=== PATIENT | female | born 1955 | race Caucasian/White ===

== ENCOUNTER 2016-11-27 17:04 | Emergency (ER) | payer MEDICAID ==
[2016-11-27 17:11] VITALS: TEMP 97.9
--- NOTE | 2016-11-27 17:42 | CPEKG ---
Heart Rate: 82 RR Interval: 732 P-R Interval: 144 QRSD Interval: 104 QT Interval: 380 QTC Interval: 444 P [place]: 64 QRS [place]: 135 T Wave [place]: -57 EKG Severity - ABNORMAL ECG - EKG Impression: SINUS RHYTHM EKG Impression: BIATRIAL ABNORMALITIES EKG Impression: RVH WITH SECONDARY REPOLARIZATION ABNORMALITY EKG Impression: NONSPECIFIC T ABNORMALITIES, LATERAL LEADS Electronically Signed By: Hoang Garcia 27-Nov-2016 23:29:14
--- NOTE | 2016-11-27 17:52 | EDPHY ---
H & P Stated Complaint: sob/dyspnea/hx of chf Time Seen by Provider: 11/27/16 17:25 HPI/ROS: Chief Complaint: Shortness of breath HPI: 61-year-old female with a history of coronary artery disease, congestive heart failure and pulmonary hypertension has been having worsening shortness of breath and dyspnea on exertion for the last 3 weeks. She does feel like she is retaining more fluid than normal. She is under the care of , cardiology at [facility]. She has an appointment with pulmonary hypertension specialist on the of next month. Has had a mild nonproductive cough. No chest pain. No nausea or vomiting. No syncope or pain. No palpitations. ROS: 10 point Review of Systems is negative except as noted in the HPI. PMH: Coronary artery disease, congestive heart failure, pulmonary hypertension , ulcerative colitis Medications: Lasix, atorvastatin, carvedilol, spironolactone Allergies: Carisoprodol Social History: No smoking, no alcohol, no recreational drug use Family History: non-contributory Physical Exam: Gen: Awake, Alert, No Distress HEENT: Nose: no rhinorrhea Eyes: PERRLA, EOMI Mouth: Moist mucosa Neck: Supple, no JVD Chest: nontender, lungs clear to auscultation Heart: S1, S2 normal, no murmur Abd: Soft, non-tender, no guarding Back: no CVA tenderness, no midline tenderness Ext: no edema, non-tender Skin: no rash Neuro: CN II-XII intact, Sensation grossly intact, Strength 5/5 in bilateral upper and lower extremities - Personal History Current Tetanus/Diphtheria Vaccine: Yes - Medical/Surgical History Hx Asthma: No Hx Chronic Respiratory Disease: Yes Hx Diabetes: No Hx Cardiac Disease: Yes Hx Renal Disease: No Hx Cirrhosis: No Hx Alcoholism: No Hx HIV/AIDS: No Hx Splenectomy or Spleen Trauma: No Other PMH: pneumonia; nosocomial bacterial sepsis; ULCERATIVE COLITIS pulmonary hypertension and chf - Social History Smoking Status: Current some day smoker Constitutional: Initial Vital Signs Temperature (C) 36.6 C 11/27/16 17:08 Heart Rate 91 11/27/16 17:08 Respiratory Rate 20 11/27/16 17:08 Blood Pressure 115/77 11/27/16 17:08 O2 Sat (%) 97 11/27/16 17:08 O2 Delivery Mode Room Air Allergies/Adverse Reactions: carisoprodol [From Soma] Allergy (Severe, Verified 11/27/16 17:07) ITCH Home Medications: Medication Instructions Recorded Atorvastatin Calcium [Lipitor 80 80 mg PO DAILY #30 tablet 05/24/16 mg] Carvedilol [Coreg (*)] 3.125 mg PO BIDMEAL #60 tab 05/24/16 Furosemide [Lasix 40 MG (*)] 40 mg PO DAILY #30 tab 05/24/16 Nicotine [Nicoderm Cq 21 mg (*)] 21 mg TD DAILY #21 patch 05/24/16 Spironolactone [Aldactone] 50 mg PO DAILY #30 tab 05/24/16 Medical Decision Making - Diagnostics EKG Interpretation: ECG time 5:40 p.m., sinus rhythm with a rate of 82, he has T-wave inversions in the inferior leads and the [address] depression inferiorly and in precordium. These are unchanged compared to an ECG from the 20 May 2016. Imaging Results: Imaging Impressions Chest X-Ray 11/27/16 17:51 Impression: Mild cardiac enlargement, with prominence of the central pulmonary arteries. Lungs are clear.. ED Course/Re-evaluation: Case has been discussed with Dr. Nobles, cardiology at [facility]. I have reviewed the patient's ECG, blood work, an x-ray. He is not recommending any changes in her medical treatment at this time. He says that patient's best next step is to follow up with a pulmonary hypertension specialist as scheduled. He she can follow up with him in the office. Patient has an elevated BNP here but there is no clinical evidence of fluid overload at this time. She has good oxygen saturations. Her renal function is normal and electrolytes are normal. Her D-dimer is normal is no evidence of PE at this time. Her ECG is unchanged from prior. She will be discharged with follow up with Cardiology. - Data Points Laboratory Results: Laboratory Results 11/27/16 17:57 11/27/16 17:57 11/27/16 11/27/16 11/27/16 18:04 17:57 17:57 WBC 8.84 10^3/uL 10^3/uL (3.80-9.50) RBC 5.22 10^6/uL 10^6/uL (4.18-5.33) Hgb 17.0 g/dL H g/dL (12.6-16.3) Hct 47.8 % H % (38.0-47.0) MCV 91.6 fL fL (81.5-99.8) MCH 32.6 pg pg (27.9-34.1) MCHC 35.6 g/dL g/dL (32.4-36.7) RDW 12.5 % % (11.5-15.2) Plt Count 165 10^3/uL 10^3/uL (150-400) MPV 10.7 fL fL (8.7-11.7) Neut % (Auto) 59.3 % % (39.3-74.2) Lymph % (Auto) 30.8 % % (15.0-45.0) [place] % (Auto) 6.3 % % (4.5-13.0) Eos % (Auto) 2.5 % % (0.6-7.6) Baso % (Auto) 0.6 % % (0.3-1.7) Nucleat RBC Rel Count 0.0 % % (0.0-0.2) Absolute Neuts (auto) 5.25 10^3/uL 10^3/uL (1.70-6.50) Absolute Lymphs (auto) 2.72 10^3/uL 10^3/uL (1.00-3.00) Absolute Monos (auto) 0.56 10^3/uL 10^3/uL (0.30-0.80) Absolute Eos (auto) 0.22 10^3/uL 10^3/uL (0.03-0.40) Absolute Basos (auto) 0.05 10^3/uL 10^3/uL (0.02-0.10) Absolute Nucleated RBC 0.00 10^3/uL 10^3/uL (0-0.01) Immature Gran % 0.5 % % (0.0-1.1) Immature Gran # 0.04 10^3/uL 10^3/uL (0.00-0.10) D-Dimer 0.28 ug/mLFEU ug/mLFEU (0.00-0.50) Sodium 139 mEq/L mEq/L (134-144) Potassium 4.7 mEq/L mEq/L (3.5-5.2) Chloride 107 mEq/L mEq/L (97-110) Carbon Dioxide 21 mEq/l L mEq/l (22-31) Anion Gap 11 mEq/L mEq/L (8-16) BUN 22 mg/dL mg/dL (7-23) Creatinine 0.8 mg/dL mg/dL (0.6-1.0) Estimated GFR > 60 Glucose 165 mg/dL H mg/dL (70-100) Calcium 9.2 mg/dL mg/dL (8.5-10.4) Troponin I 0.024 ng/mL ng/mL (0-0.034) NT-Pro-B Natriuret Pep 3870 pg/mL H pg/mL (0-125) Specimen Hemolysis 112 Departure - Departure Disposition: Home, Routine, Self-Care Clinical Impression: Congestive heart failure, Dyspnea Condition: Good Instructions: Dyspnea (ED) Additional Instructions: Follow up with donkey engine firer/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 Follow up with the pulmonary hypertension specialist as scheduled next month. Return to the emergency depart for increasing shortness of breath, fevers, chills, pain, nausea, vomiting, or any other concerns. Referrals: Hoang Maldonado MD [Primary Care Provider] - As per Instructions
[2016-11-27 18:11] LABS: % IMMATURE GRANULYOCYTES 0.5 % (0.0-1.1); ABSOLUTE IMMATURE GRANULOCYTES 0.04 10^3/uL (0.00-0.10); ADD DIFF? NO; ADD MORPH? NO; ADD SCAN? NO; ATYPICAL LYMPHOCYTE FLAG 0 (0-99); FRAGMENT RBC FLAG 0 (0-99); HEMATOCRIT 47.8 % (38.0-47.0); LEFT SHIFT FLG 0 (0-99); LIPEMIA HEMOLYSIS FLAG 90 (0-99); MEAN CELL HEMOGLOBIN 32.6 pg (27.9-34.1); MEAN CELL HEMOGLOBIN CONCENTR. 35.6 g/dL (32.4-36.7); MEAN CELL VOLUME 91.6 fL (81.5-99.8); MEAN PLATELET VOLUME 10.7 fL (8.7-11.7); PLATELET CLUMPS FLAG 10 (0-99); PLATELET COUNT 165 10^3/uL (150-400); RED BLOOD CELL COUNT 5.22 10^6/uL (4.18-5.33); RED CELL DISTRIBUTION WIDTH 12.5 % (11.5-15.2)
[2016-11-27 18:16] LABS: ANION GAP 11 mEq/L (8-16); CALCIUM 9.2 mg/dL (8.5-10.4); CARBON DIOXIDE 21 mEq/l (22-31); CHLORIDE 107 mEq/L (97-110); CREATININE 0.8 mg/dL (0.6-1.0); GLOMERULAR FILTRATION RATE > 60; GLUCOSE 165 mg/dL (70-100); POTASSIUM 4.7 mEq/L (3.5-5.2); SODIUM 139 mEq/L (134-144); SPECIMEN HEMOLYSIS 112
[2016-11-27 18:28] LABS: TROPONIN I 0.024 ng/mL (0-0.034)
[2016-11-27 19:41] VITALS: BP 111/82; PULSE 83; RESP 16; O2SAT 93
== END 2016-11-27 19:41 | disposition home or self-care (01) ==
DX: I50.9 Heart failure, unspecified (principal); I25.10 Atherosclerotic heart disease of native coronary artery without angina pectoris; F17.200 Nicotine dependence, unspecified, uncomplicated

== ENCOUNTER 2017-01-06 21:34 | Observation (INO) | payer MEDICAID ==
--- NOTE | 2017-01-06 21:49 | CPEKG ---
Heart Rate: 87 RR Interval: 690 P-R Interval: 148 QRSD Interval: 110 QT Interval: 412 QTC Interval: 496 P [place]: 57 QRS [place]: 135 T Wave [place]: -53 EKG Severity - ABNORMAL ECG - EKG Impression: SINUS RHYTHM EKG Impression: BIATRIAL ABNORMALITIES EKG Impression: NONSPECIFIC INTRAVENTRICULAR CONDUCTION DELAY EKG Impression: MINIMAL ST DEPRESSION, INFERIOR LEADS Electronically Signed By: Issa Grossman 07-Jan-2017 07:55:19
[2017-01-06 22:17] LABS: % IMMATURE GRANULYOCYTES 0.2 % (0.0-1.1); ABSOLUTE IMMATURE GRANULOCYTES 0.02 10^3/uL (0.00-0.10); ADD DIFF? NO; ADD MORPH? NO; ADD SCAN? NO; ATYPICAL LYMPHOCYTE FLAG 10 (0-99); FRAGMENT RBC FLAG 0 (0-99); HEMATOCRIT 51.8 % (38.0-47.0); LEFT SHIFT FLG 0 (0-99); LIPEMIA HEMOLYSIS FLAG 90 (0-99); MEAN CELL HEMOGLOBIN 31.7 pg (27.9-34.1); MEAN CELL HEMOGLOBIN CONCENTR. 34.7 g/dL (32.4-36.7); MEAN CELL VOLUME 91.4 fL (81.5-99.8); MEAN PLATELET VOLUME 10.8 fL (8.7-11.7); PLATELET CLUMPS FLAG 0 (0-99); PLATELET COUNT 190 10^3/uL (150-400); RED BLOOD CELL COUNT 5.67 10^6/uL (4.18-5.33)
[2017-01-06] MEDS ORDERED: ASPIRIN EC 325 MG TAB PO ONE (22:18)
--- NOTE | 2017-01-06 22:24 | EDPHY ---
H & P Stated Complaint: cp Time Seen by Provider: 01/06/17 22:02 HPI/ROS: HPI The patient presents with chest pain which began at 8:23 p.m. tonight after finishing breaking in some yd work. The pain is left-sided, sharp and stabbing and also described as a tightness. It has mostly resolved now as of approximately 10:10 p.m. and is more of a dull pain. It is associated with shortness of breath, nausea, mild diaphoresis. She has been more active than usual over the last 2 days doing more work around the house. She does not have any leg swelling. She has not had any recent weight gain. She has actually been feeling fairly well.. REVIEW OF SYSTEMS Constitutional: No fever, no chills. Eyes: No discharge. ENT: No sore throat. Cardiovascular: Positive for chest pain, no palpitations. Respiratory: No cough, no shortness of breath. Gastrointestinal: No abdominal pain, no vomiting. Genitourinary: No hematuria. Musculoskeletal: No back pain. Skin: No rashes. Neurological: No headache. PMHx: CHF, CAD- head cardiac catheterization in May of 2016 which demonstrated moderate CAD in the LAD not stented, pulmonary hypertension Soc Hx: Lives at home with PHYSICAL General Appearance: Alert, no distress Eyes: Pupils equal and round no pallor or injection ENT, Mouth: Mucous membranes moist Respiratory: There are no retractions, lungs are clear to auscultation Cardiovascular: Regular rate and rhythm Gastrointestinal: Abdomen is soft and non-tender, no masses, bowel sounds normal Neurological: A&O, moves all extremities Skin: Warm and dry, no rashes Musculoskeletal: Neck is supple non tender Extremities: symmetrical, full range of motion Psychiatric: Patient is oriented X 3, there is no agitation Source: Patient Exam Limitations: No limitations - Personal History Current Tetanus/Diphtheria Vaccine: Unsure Current Tetanus Diphtheria and Acellular Pertussis (TDAP): Unsure - Medical/Surgical History Hx Asthma: No Hx Chronic Respiratory Disease: Yes Hx Diabetes: No Hx Cardiac Disease: Yes Hx Renal Disease: No Hx Cirrhosis: No Hx Alcoholism: No Hx HIV/AIDS: No Hx Splenectomy or Spleen Trauma: No Other PMH: pneumonia; nosocomial bacterial sepsis; ULCERATIVE COLITIS pulmonary hypertension and chf, CAD - Social History Smoking Status: Current some day smoker Constitutional: Initial Vital Signs Temperature (C) 36.9 C 01/06/17 21:38 Heart Rate 83 01/06/17 21:38 Respiratory Rate 16 01/06/17 21:38 Blood Pressure 111/81 H 01/06/17 21:38 O2 Sat (%) 95 01/06/17 21:38 O2 Delivery Mode Room Air Allergies/Adverse Reactions: carisoprodol [From Soma] Allergy (Severe, Verified 01/06/17 21:37) ITCH Home Medications: Medication Instructions Recorded Atorvastatin Calcium [Lipitor 80 80 mg PO DAILY #30 tablet 05/24/16 mg] Carvedilol [Coreg (*)] 3.125 mg PO BIDMEAL #60 tab 05/24/16 Furosemide [Lasix 40 MG (*)] 40 mg PO DAILY #30 tab 05/24/16 Spironolactone [Aldactone] 50 mg PO DAILY #30 tab 05/24/16 Medical Decision Making - Diagnostics EKG Interpretation: EKG: Complete interpretation has been separately recorded in the [facility] archive. Summary impression: T-wave inversions in 2, 3, AVF, V3 through V5, unchanged from prior EKG, biphasic P-waves, unchanged from prior EKG Imaging Results: Imaging Impressions Chest X-Ray 01/06/17 22:09 Impression: Stable mild cardiomegaly with prominence of the pulmonary vasculature. Differential Diagnosis: This is a 61-year-old female with CAD, CHF, pulmonary hypertension who presents with 2 hours of chest pain, now mostly resolved. Pain began after exertion and was associated with shortness of breath, nausea, diaphoresis. Differential diagnosis includes ACS, pneumonia, pericarditis, pleural effusion, pulmonary embolism. In the emergency room, the patient was monitored with no worsening of her pain. Labs were checked and were unremarkable including a troponin. BNP was elevated, slightly higher than previous. I consulted with Dr. Nobles of Cardiology. We discussed the patient's case. He agrees that the patient should be admitted for serial troponins and possible stress testing tomorrow. I consulted with the hospitalist Dr. Henson and we will admit the patient to the PCU. The patient was updated and is in agreement with this plan. - Data Points Laboratory Results: Laboratory Results 01/06/17 21:50 01/06/17 21:50 01/06/17 01/06/17 01/06/17 23:20 21:50 21:50 WBC 10.02 10^3/uL H 10^3/uL (3.80-9.50) RBC 5.67 10^6/uL H 10^6/uL (4.18-5.33) Hgb 18.0 g/dL H g/dL (12.6-16.3) Hct 51.8 % H % (38.0-47.0) MCV 91.4 fL fL (81.5-99.8) MCH 31.7 pg pg (27.9-34.1) MCHC 34.7 g/dL g/dL (32.4-36.7) RDW 13.0 % % (11.5-15.2) Plt Count 190 10^3/uL 10^3/uL (150-400) MPV 10.8 fL fL (8.7-11.7) Neut % (Auto) 53.5 % % (39.3-74.2) Lymph % (Auto) 37.3 % % (15.0-45.0) [place] % (Auto) 6.2 % % (4.5-13.0) Eos % (Auto) 2.2 % % (0.6-7.6) Baso % (Auto) 0.6 % % (0.3-1.7) Nucleat RBC Rel Count 0.0 % % (0.0-0.2) Absolute Neuts (auto) 5.36 10^3/uL 10^3/uL (1.70-6.50) Absolute Lymphs (auto) 3.74 10^3/uL H 10^3/uL (1.00-3.00) Absolute Monos (auto) 0.62 10^3/uL 10^3/uL (0.30-0.80) Absolute Eos (auto) 0.22 10^3/uL 10^3/uL (0.03-0.40) Absolute Basos (auto) 0.06 10^3/uL 10^3/uL (0.02-0.10) Absolute Nucleated RBC 0.00 10^3/uL 10^3/uL (0-0.01) Immature Gran % 0.2 % % (0.0-1.1) Immature Gran # 0.02 10^3/uL 10^3/uL (0.00-0.10) Sodium 139 mEq/L mEq/L (134-144) Potassium 4.4 mEq/L mEq/L (3.5-5.2) Chloride 105 mEq/L mEq/L (97-110) Carbon Dioxide 18 mEq/l L mEq/l (22-31) Anion Gap 16 mEq/L mEq/L (8-16) BUN 30 mg/dL H mg/dL (7-23) Creatinine 1.2 mg/dL H mg/dL (0.6-1.0) Estimated GFR 46 Glucose 104 mg/dL H mg/dL (70-100) Calcium 9.9 mg/dL mg/dL (8.5-10.4) Troponin I 0.026 ng/mL ng/mL (0-0.034) NT-Pro-B Natriuret Pep 5070 pg/mL H pg/mL (0-125) Urine Opiates Screen NEGATIVE (NEGATIVE) Urine Barbiturates NEGATIVE (NEGATIVE) Ur Phencyclidine Scrn NEGATIVE (NEGATIVE) Ur Amphetamine Screen NEGATIVE (NEGATIVE) U Benzodiazepines Scrn NEGATIVE (NEGATIVE) Urine Cocaine Screen NEGATIVE (NEGATIVE) U Marijuana (THC) Screen NEGATIVE (NEGATIVE) Medications Given: Discontinued Medications Aspirin Buffered (Aspirin Ec) 325 mg PO EDNOW ONE Stop: 01/06/17 22:19 Last Admin: 01/06/17 22:25 Dose: 325 mg Departure - Departure Disposition: [facility] ([place], [place])s Inpatient Acute Clinical Impression: Chest pain Qualifiers: Chest pain type: unspecified Qualified Code(s): R07.9 - Chest pain, unspecified Congestive heart failure Qualifiers: Congestive heart failure type: systolic Congestive heart failure chronicity: chronic Qualified Code(s): I50.22 - Chronic systolic (congestive) heart failure CAD (coronary artery disease) Qualifiers: Coronary Disease-Associated Artery/Lesion type: unspecified vessel or lesion type [place] vs. transplanted heart: [place] heart Associated angina: angina presence unspecified Qualified Code(s): I25.10 - Atherosclerotic heart disease of [place] coronary artery without angina pectoris Condition: Fair
[2017-01-06 22:25] LABS: ANION GAP 16 mEq/L (8-16); CALCIUM 9.9 mg/dL (8.5-10.4); CARBON DIOXIDE 18 mEq/l (22-31); CHLORIDE 105 mEq/L (97-110); CREATININE 1.2 mg/dL (0.6-1.0); GLOMERULAR FILTRATION RATE 46; GLUCOSE 104 mg/dL (70-100); POTASSIUM 4.4 mEq/L (3.5-5.2); SODIUM 139 mEq/L (134-144)
[2017-01-06 22:36] LABS: TROPONIN I 0.026 ng/mL (0-0.034)
[2017-01-07] MEDS ORDERED: ACETAMINOPHEN 325 MG TAB PO PRN (01:07)
[2017-01-07] MEDS ORDERED: ONDANSETRON DISINTEGRATING 4 MG TAB PO PRN (01:07)
[2017-01-07] MEDS ORDERED: TEMAZEPAM 15 MG CAP PO PRN (01:07)
[2017-01-07] MEDS ORDERED: ONDANSETRON 4 MG/2 ML VIAL IVP PRN (01:07)
--- NOTE | 2017-01-07 01:31 | CPEKG ---
Heart Rate: 74 RR Interval: 811 P-R Interval: 156 QRSD Interval: 106 QT Interval: 432 QTC Interval: 480 P [place]: 65 QRS [place]: 114 T Wave [place]: -67 EKG Severity - ABNORMAL ECG - EKG Impression: SINUS RHYTHM EKG Impression: BIATRIAL ABNORMALITIES EKG Impression: INCOMPLETE RIGHT BUNDLE BRANCH BLOCK EKG Impression: ABNRM R PROG, CONSIDER ASMI OR LEAD PLACEMENT Electronically Signed By: Issa Grossman 07-Jan-2017 07:55:25
[2017-01-07 04:49] LABS: % IMMATURE GRANULYOCYTES 0.2 % (0.0-1.1); ABSOLUTE IMMATURE GRANULOCYTES 0.02 10^3/uL (0.00-0.10); ADD DIFF? NO; ADD MORPH? NO; ADD SCAN? NO; ATYPICAL LYMPHOCYTE FLAG 10 (0-99); FRAGMENT RBC FLAG 0 (0-99); HEMATOCRIT 47.8 % (38.0-47.0); HEMOGLOBIN 16.4 g/dL (12.6-16.3); LEFT SHIFT FLG 0 (0-99); LIPEMIA HEMOLYSIS FLAG 90 (0-99); MEAN CELL HEMOGLOBIN 31.7 pg (27.9-34.1); MEAN CELL HEMOGLOBIN CONCENTR. 34.3 g/dL (32.4-36.7); MEAN CELL VOLUME 92.3 fL (81.5-99.8); MEAN PLATELET VOLUME 10.7 fL (8.7-11.7); PLATELET CLUMPS FLAG 0 (0-99); PLATELET COUNT 152 10^3/uL (150-400); RED BLOOD CELL COUNT 5.18 10^6/uL (4.18-5.33); RED CELL DISTRIBUTION WIDTH 12.9 % (11.5-15.2)
--- NOTE | 2017-01-07 04:53 | GHP ---
[f rep st] HISTORY AND PHYSICAL DATE OF ADMISSION: 01/07/2017 CHIEF COMPLAINT: Chest pain. HISTORY OF PRESENT ILLNESS: A 61-year-old female with a history of nonobstructive coronary artery d mitchell, presents with chest pain. This started at 8:23 this evening described as sharp and heavy on the left side. It is pleuritic in nature. It is worse when she is lying on the left. She is uncl ear if it is worse when she is leaning forward. To her, it feels like her "arteries are clogged." Her functional status has not really changed very much, otherwise. She has intermittent lower extre mity edema. She had a catheterization in April of 2016, which showed some moderate coronary artery disease, t leeroy she did not receive a stent at that point. She has been compliant with her cardiac medication s. She is not taking aspirin due to ulcerative colitis. She sees Dr. Nobles. Last time she saw him was about a month ago. She continues to smoke. She drinks occasionally; she did drink tonight. Lawrence guo has been using meth, but it has been a few weeks since she used meth the last time. PAST MEDICAL/SURGICAL HISTORY: 1. Congestive heart failure, diastolic, followed by Dr. Nobles. 2. Coronary artery disease, nonobstructive, has not received any stents. 3. Ulcerative colitis with intermittent prednisone use. 4. Methamphetamine use. 5. History of cholecystectomy. MEDICATIONS: Please see medication reconciliation. ALLERGIES: Carisoprodol. FAMILY HISTORY: Reviewed and noncontributory. SOCIAL HISTORY: Per HPI. REVIEW OF SYSTEMS: A 10-point review of systems is conducted and is negative except per HPI. PHYSICAL EXAMINATION: VITAL SIGNS: Blood pressure 107/88, heart rate 81, respiration rate 16, satu rating 98% on room air, temperature is 36.5. GENERAL: The patient is a pleasant female who is rest ing comfortably in bed in no acute distress. HEENT: Shows her to be normocephalic, atraumatic. CA RDIOVASCULAR: Regular rate and rhythm. There are no murmurs, rubs, or gallops. She has no lower e xtremity edema. She has no elevated JVD. She has 2 palpable bilateral dorsalis pedis pulses. Her extremities are warm. PULMONARY: Shows very diminished breath sounds bilaterally. I do not apprec iate any rales. ABDOMEN: Soft, nontender, nondistended. SKIN: Shows no rash. : Shows no Fole y. NEUROLOGIC: Shows her to be alert and oriented x3. She is moving all extremities. PSYCHIATRIC : Shows normal mood and affect. LABORATORY DATA: White count is 10, hemoglobin is 18, bicarb is 18, creatinine is 1.2. Initial tro ponin 0.026. BNP is 5070. DATA: 1. Chest x-ray, which I personally reviewed and interpreted, shows cardiomegaly, mild pulmonary vas cular predominance. 2. EKG, which I personally viewed and interpreted, shows Q-wave in lead III. She has T-wave invers ions at all of her precordial leads except for V6. This is not changed from her prior. IMPRESSION AND PLAN: A 61-year-old female with significant vascular disease, presents with chest pa in. 1. Chest pain: Dr. Nobles has been consulted by the ED. Workup thus far is negative. Consideration s include acute coronary syndrome, pericarditis, pulmonary embolism. I think pulmonary embolism les s likely given her unchanged EKG, no tachycardia, she is on room air. Pericarditis difficult to int erpret in her EKG. Will rule out acute coronary syndrome with serial troponins. Appreciate Cardiol maribelly consult. She did receive an aspirin in the ED, though she is not normally on this. 2. History of nonobstructive coronary artery disease: She tells me she is compliant with her medic ations. Notably, she is not on aspirin due to ulcerative colitis. 3. Methamphetamine use. 4. Ulcerative colitis: She needs intermittent prednisone. She is not having an exacerbation right now. /[id number]/MODL
[2017-01-07 05:06] LABS: ANION GAP 11 mEq/L (8-16); CALCIUM 9.3 mg/dL (8.5-10.4); CARBON DIOXIDE 19 mEq/l (22-31); CHLORIDE 108 mEq/L (97-110); GLOMERULAR FILTRATION RATE 57; GLUCOSE 179 mg/dL (70-100); SODIUM 138 mEq/L (134-144)
[2017-01-07 05:18] LABS: TROPONIN I 0.025 ng/mL (0-0.034)
--- NOTE | 2017-01-07 13:56 | ECHO ---
[id number] + + [address] : : [place] [address] : : [phone] + Adult Echocardiographic Report + -------+ :Name: AYESHA HUIZAR MStudy Date: 01/07/2017 12:22 PM : : Hospital Admission Number: [id number] Locati on: 219: :: 1955 Gender: Female Height: 61 in : :Age: 61 yrs Race: WH,UN Weight: 133 lb : :Reason For Study: Eval LV Fx : : BSA: 1.6 meter s2 : :History: Chest Pain, SOB : + -------+ MMode/2D Measurements \T\ Calculations IVSd: 0.75 cm RVDd: 5.3 cm FS: 33.3 % Ao root diam: LVPWd: 0.84 cm LVIDd: 3.9 cm EDV(Teich): 3.0 cm LVIDs: 2.6 cm 66.2 ml ACS: 1.5 cm ESV(Teich): 24.8 ml EF(Teich): 62.6 % LVLd ap4: 5.5 cm SV(MOD-sp4): EDV(MOD-sp4): 12.0 ml 26.0 ml LVLs ap4: 4.4 cm ESV(MOD-sp4): 14.0 ml EF(MOD-sp4): 46.2 % Normal Measurement Values: + + :LVIDd (3.5-5.7cm) IVSd (0.6-1.1cm) LVPWd (0.6-1.1cm) Aortic Root (2.0-3.7cm)Left Atrium (1.5-4.0cm): :LV Vol(d) (76-115ml) LV Vol(s) (29-48ml) Ejec Fraction (50-65%)PV Tunde (0.6- 1.2m/s) TV Tunde (0.4-1.0m/s) : :MV E Tunde (0.8-1.0m/s)MV A Tunde (0.3-1.0m/s)LVOT Tunde (0.7-1.2m/s) Asc Ao Tunde ( 0.9-1.8m/s) : + + Doppler Measurements \T\ Calculations MV E max tunde: Ao V2 max: LV V1 max: PA V2 max: 67.6 cm/sec 102.6 cm/sec 52.3 cm/sec 85.5 cm/sec Ao max P.2 mmHgLV V1 max PG: PA max P.1 mmHg 2.9 mmHg PI end-d tunde: TR max tunde: 221.3 cm/sec 387.6 cm/sec TR max P.1 mmHg RAP systole: 10.0 mmHg RVSP(TR): 70.1 mmHg Left Ventricle The left ventricle is normal in size. There is normal left ventricular wall thickness. Ejection Fraction = 50-55%. Flattened septum is consistent with RV pressure/volume overload. Right Ventricle The right ventricle is severely dilated. The right ventricular systolic function is severely reduced. Atria The left atrial size is normal. The right atrium is moderate to severely dilated. Known PFO. The atrial septum is aneurysmal. Mitral Valve The mitral valve is normal in structure and function. There is no mitral valve stenosis. There is no mitral regurgitation noted. Tricuspid Valve Normal tricuspid valve. There is moderate tricuspid regurgitation. Right ventricular systolic pressure is 70mmHg. There is Doppler evidence for severe pulmonary hypertension. Aortic Valve The aortic valve is normal in structure and function. There is no aortic stenosis. There is no aortic insufficiency. Pulmonic Valve The pulmonic valve is normal in structure and function. There is no pulmonic valvular regurgitation. Great Vessels The aortic root is normal size. Pericardium/Pleural trivial pericardial effusion. Conclusion A complete two-dimensional transthoracic echocardiogram was performed (2D, M-mode, Doppler and color flow Doppler). Small left ventricle with low normal LV systolic function and no ischemic wall motion abnormalities. Flattened septum is consistent with RV pressure/volume overload. Ejection Fraction = 50-55%. The right ventricle is severely dilated. The right ventricular systolic function is severely reduced. The atrial septum is aneurysmal. Known PFO. Normal appearing cardiac valves. There is moderate tricuspid regurgitation. Right ventricular systolic pressure is 70mmHg. There is Doppler evidence for severe pulmonary hypertension. Trivial pericardial effusion. Largely unchanged when compared to a prior study from April of 2016. Final Reading Physician: Deyvi Ely signed on 01/07/2017 01:54 PM Ordering Physician: Debbie Edmonds Performed By: Keenan Castro, CS
[2017-01-07 15:15] VITALS: BP 97/66; PULSE 79; RESP 17; TEMP 97.7; O2SAT 95
[2017-01-07] MEDS ORDERED: CARVEDILOL 3.125 MG TAB PO SCH (18:00)
--- NOTE | 2017-01-08 01:05 | GCON ---
[f rep st] CONSULTATION DATE OF CONSULTATION: 01/07/2017 INDICATIONS: Chest discomfort. HISTORY OF PRESENT ILLNESS: The patient is 61 years old and has a complex cardiovascular history. She has known nonobstructive coronary artery disease based on a coronary angiogram performed in [facility] of 2016. Additionally, she has moderate pulmonary hypertension, which appears to be WHO group 1 based on previous methamphetamine use. Apparently, she is seeing a tariff compiler in [place]; [facility], has not been started on any formal therapy for this condition. She is admitted to the hospital now with symptoms of chest discomfort. She states that she has been doing a lot of yard work, as we ll as house work recently. She spent the day yesterday doing yard work, which consisted of raking a nd mowing. Apparently to the day prior, she also cleaned her house fairly extensively. Yesterday e vening at about 8 o'clock she developed the abrupt onset of left-sided chest discomfort. This was d escribed as a combination of a heaviness and a sharp pain in the region immediately left of her ster num above her left breast. The pain was noted to be respirophasic and worse with deep inspiration. The pain was alleviated if she would raise her left arm above her head and stretcher chest. Additi onally, the discomfort was improved if she would lie on her left side. She had no associated sympto ms of dyspnea. She denied diaphoresis. There were no symptoms of nausea or vomiting. Because of t hese symptoms, she came to the emergency department. On arrival, she was hemodynamically stable wit h a blood pressure 111/81, heart rate of 83, and room air saturations of 95%. Her initial electroca rdiogram demonstrated normal sinus rhythm at 87 beats per minute. There was an incomplete right bun dle branch block with evidence of left atrial and right atrial enlargement. There were T-wave inver sions noted in the inferior, as well as in the anterior leads. This ECG was not changed compared to prior electrocardiograms. Her in first 2 sets of cardiac enzymes, one done at 2150 last night and the second at 0411 this morning are normal. Her N terminal proBNP was elevated at 5070. Today, she states she feels much better. She still has some pain to palpation of her left chest and with deep inspiration and movement of her left chest. She notes that she typically does not have problems wi th chest discomfort. She denies any significant dyspnea. Unfortunately, after a fairly long period of being free of methamphetamine use, she used it again about 2 weeks ago. She used to smoke heavi ly, including cigarettes and methamphetamine. She drinks very rarely currently PAST MEDICAL HISTORY: 1. 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 This is being followed down in [place] by a Dr. Hinkle. 2. Nonobstructive coronary artery disease based on cardiac catheterization in April of 2016. 3. History of ulcerative colitis previously requiring intermittent prednisone. This is currently i n remission. 4. History of methamphetamine use. 5. History of heavy tobacco use. 6. Possible COPD. 7. History of pneumonia/sepsis. PAST SURGICAL HISTORY: 1. Cholecystectomy. 2. section. HOME MEDICATIONS: 1. Multivitamin. 2. Herbal supplements. 3. Atorvastatin 80 mg daily. 4. Aldactone 50 mg daily. 5. Furosemide 40 mg daily. 6. Coreg 3.125 mg twice daily. ALLERGIES: Carisoprodol. FAMILY HISTORY: Apparently, her father smoked and drank a great deal. He had COPD and apparently h ad congestive heart failure, possibly also pulmonary hypertension. SOCIAL HISTORY: She is . She lives in the [facility]. 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 She has a son who is grown. Apparently, h er sister about a year and a half ago, and she is currently raising her nephew, who is currentl y 14-1/2 years old. She does smoke about a pack and a half cigarettes daily. She used to use metha mphetamine heavily and apparently continues to use it intermittently. She uses alcohol occasionally . REVIEW OF SYSTEMS: A full 10-point review of systems was performed and is otherwise negative. PHYSICAL EXAMINATION: GENERAL: She is a healthy white female, in no acute distress. VITAL SIGNS: Her blood pressure is 96/68. The heart rate is 79. Room air saturations of 92%. She is afebrile. HEENT/NECK: No jugular venous distention. She has 2+ carotids with no bruits. She has no adenop athy or thyromegaly. RESPIRATORY: She speaks in full sentences, using no accessory muscles. On au scultation, she has decreased breath sounds throughout all the posterior lung hills. CARDIAC: Pre cordial inspection demonstrates a nondisplaced PMI. On auscultation, she has a regular rate and rhy thm. There is a 1/6 holosystolic murmur at the left sternal border with a loud P2 component. No pe ricardial friction rub is noted. ABDOMEN: Soft and nontender without masses or hepatosplenomegaly. EXTREMITIES: Warm and well perfused. She has no edema. VASCULATURE: She has nonpalpable aorta with 2+ radial, dorsal, pedal, and posterior tibial pulses. DATABASE: She had a cardiac catheterization in April of 2016. This demonstrated mean pulmonary artery pressures of 49, which was done at the same time of measuring a pulmonary capillary wedge pre ssure of 13 mmHg. Adenosine vasodilator challenge was negative for any reduction in her mean PA pre ssure, and in fact, her mean PA pressure increased. Her left heart catheterization demonstrated non obstructive disease with a 60% mid LAD stenosis. Her ejection fraction was noted to be 35% to 40%. There was no significant mitral insufficiency or valvular heart disease. She had an echocardiogram done May of 2016. Her ejection fraction was 60% to 65%. There is a dyssynchronous interventr icular septum. The right atrium was moderate to severely dilated. The right ventricle was dilated and severely hypokinetic. There was moderate tricuspid insufficiency with moderate pulmonary insuff iciency and a right ventricular systolic pressure estimated at 65% to 70%. Sodium 138, potassium 4. 0, BUN 27, creatinine 1.0, calcium 9.3. Troponins have been negative x2. BNP 5071. D-dimer less t cardenas 0.27. Tox screen is negative. White blood cell count 8.06, hematocrit 47.8, platelet count 152 ,000. IMPRESSION: 1. Atypical chest pain. Based on her history, this is likely musculoskeletal. The pain is positio nal and respirophasic and to a certain component reproducible on physical examination. Her electroc ardiogram, while abnormal, is unchanged when compared to prior ECGs. Two sets of cardiac enzymes ar e negative at this point, and her D-dimer is negative. There is no indication that this represents aortic dissection. 2. History of nonobstructive coronary artery disease as described above. 3. History of WHO group 1 pulmonary hypertension, likely related to previous methamphetamine use. 4. Possible cardiomyopathy. There appears to be a discrepancy between her ejection fraction by cat heterization and by echocardiography. Her echo, which was done later that her catheterization seeme d indicate that her ejection fraction was near normal. Certainly would not be unheard of for an ind ividual with extensive methamphetamine use to have a cardiomyopathy. RECOMMENDATIONS: 1. She has another troponin pending for noon. Once that has been completed and if normal, I think the patient can be discharged home with followup with Dr. Jossue Nobles. 2. Obviously, it would be advantageous if she would abstain from all forms of stimulants, including methamphetamine in light of her moderate to severe pulmonary arterial hypertension. 3. She will maintain followup with her tariff compiler in [place] with respect optimal treatment for h er pulmonary arterial hypertension. 4. She may even benefit from long-standing low-dose aspirin treatment in light of her nonobstructiv e CAD. 5. Her hemodynamics prohibit up titration of beta blockers or consideration of initiation of an GERALDO inhibitor, which would be beneficial should her ejection fraction prove to be reduced. A MUGA scan may help accurately determine her ejection fraction. Thank you for this consult. /[id number]/MODL
[2017-01-08] MEDS ORDERED: NON-FORMULARY NEW DRUG (Atorvastatin Calcium [Lipitor 80 Mg] 80 MG) PO SCH (09:00)
[2017-01-08] MEDS ORDERED: ATORVASTATIN CALCIUM 40 MG TAB PO SCH (09:00)
[2017-01-08] MEDS ORDERED: FUROSEMIDE 40 MG TAB PO SCH (09:00)
[2017-01-08] MEDS ORDERED: SPIRONOLACTONE 50 MG TAB PO SCH (09:00)
--- NOTE | 2017-01-08 10:58 | GDS ---
[f rep st] DISCHARGE SUMMARY DISCHARGE DIAGNOSES: 1. Severe pulmonary hypertension. 2. Chest pain, suspect musculoskeletal. 3. Nonobstructive coronary artery disease with recent cardiac catheterization. 4. Ulcerative colitis. 5. Tobacco dependence. HISTORY: Scout is a 61-year-old female who had a recent cardiac catheterization and was found to have nonobstructive coronary artery disease. She presents with a pleuritic sharp pain on her left side. Her D-dimer was negative. She was seen by Cardiology. They thought her chest pain was muscu loskeletal in origin and no further evaluation was necessary at this time. She did get an echocardiogram which showed severe pulmonary hypertension. She continues to smoke an d she was advised that smoking cessation was essential to her health, and she seems very motivated a t the time of discharge to finally quit. Part of her problem with the smoking has been her severe u lcer colitis, which is actually well controlled with tobacco use. She should follow up with Gastroe nterology regarding alternative options for management. DISCHARGE MEDICATIONS: Please see computer record for full detailed list. There were no new medica tions given at the time of hospital discharge. ADDITIONAL DISCHARGE INSTRUCTIONS: Complete smoking cessation was recommended and patient was couns eled regarding strategies for smoking cessation from this point forward. The patient was seen and e xamined by me on the day of discharge. /[id number]/MODL
== END 2017-01-07 15:55 | disposition home or self-care (01) ==
LOC: F2W 01-07 01:12
PROVIDERS: ADMIT Student in an Organized Health Care Education/Training Program; ATTEND Internal Medicine
DX: R07.89 Other chest pain (principal); I27.2 Other secondary pulmonary hypertension; I25.10 Atherosclerotic heart disease of native coronary artery without angina pectoris; F15.90 Other stimulant use, unspecified, uncomplicated; I50.32 Chronic diastolic (congestive) heart failure; F17.210 Nicotine dependence, cigarettes, uncomplicated; K51.90 Ulcerative colitis, unspecified, without complications
CPT/HCPCS: 71020; 93005; 93306; 99285; G0378; 80305